=== PATIENT | female | born 1960 | race Caucasian/White ===

== ENCOUNTER 2018-09-10 12:40 | Emergency (ER) | payer OTHER ==
[2018-09-10 13:18] VITALS: BP 160/72
--- NOTE | 2018-09-10 13:36 | UC ---
Knee Pain HPI - HPI Summary HPI Summary: right knee pain x 1 day injury to her right knee at work resident threw a chair at her , chair hit her right knee + swelling, bruising , pain has been favoring her right leg , pain and discomfort of left foot - History of Current Complaint Chief Complaint: UCLowerExtremity Stated Complaint: WC-RT KNEE INJURY Time Seen by Provider: 09/10/18 13:21 Hx Obtained From: Patient Onset/Duration: Sudden Onset, Lasting Days - 1, Still Present Severity Initially: Moderate Severity Currently: Moderate Pain Intensity: 5 Character: Dull, Aching Aggravating Factor(s): Movement, Weight Bearing, Prolonged Standing, Stairs Alleviating Factor(s): Rest, Cold Associated Signs And Symptoms: Positive: Swelling, Bruising. Negative: Redness , Fever, Weakness, Numbness, Tingling - Allergies/Home Medications Allergies/Adverse Reactions: Allergies Allergy/AdvReac Type Severity Reaction Status Date / Time No Known Allergies Allergy Verified 09/10/18 13:18 Home Medications: Home Medications Acetaminophen [Eq 8Hr Arthritis Pain Rel] 1,200 mg PO TID PRN 09/10/18 [History Confirmed 09/10/18] Levothyroxine Sodium [Synthroid] 50 mcg PO DAILY 09/10/18 [History Confirmed 07/30] Meloxicam [Mobic] 15 mg PO DAILY 09/10/18 [History Confirmed 09/10/18] PMH/Surg Hx/FS Hx/Imm Hx Endocrine History: Diabetes, Hypothyroidism Cardiovascular History: Hypertension - Surgical History Surgical History: Yes Surgery Procedure, Year, and Place: hernia with mesh. - Family History Known Family History: Positive: Hypertension - Social History Alcohol Use: None Substance Use Type: None Smoking Status (MU): Never Smoked Tobacco Review of Systems All Other Systems Reviewed And Are Negative: Yes Constitutional: Positive: Negative Skin: Positive: Negative Eyes: Positive: Negative Is Patient Immunocompromised?: No Physical Exam Triage Information Reviewed: Yes Appearance: Well-Appearing, No Pain Distress, Well-Nourished Vital Signs: Initial Vital Signs Temp 97.5 F 09/10/18 13:13 Pulse 77 09/10/18 13:13 Resp 18 09/10/18 13:13 BP 160/72 09/10/18 13:13 Pulse Ox 97 09/10/18 13:13 Vital Signs Reviewed: Yes Eye Exam: Normal Eyes: Positive: Conjunctiva Clear ENT: Positive: Normal ENT inspection, Hearing grossly normal Neck: Positive: Supple, Nontender, No Lymphadenopathy Respiratory: Positive: Chest non-tender, Lungs clear, Normal breath sounds Cardiovascular: Positive: RRR, No Murmur, Pulses Normal Musculoskeletal: Positive: Other: - right knee: mild bruising, mild tenderness, on swelling, no effusion, good ROM , normal strength left foot: no swelling, no bruising, + plantar tenderness Knee Pain Course/Dx - Differential Dx/Diagnosis Provider Diagnosis: Contusion of right knee, Plantar fasciitis of left foot Discharge - Sign-Out/Discharge Documenting (check all that apply): Patient Departure All imaging exams completed and their final reports reviewed: No Studies - Discharge Plan Condition: Stable Disposition: HOME Patient Education Materials: Plantar Fasciitis (ED), Contusion in Adults (ED) Forms: *Work Release Referrals: No Primary Care Phys,NOPCP [Primary Care Provider] - If Needed - Billing Disposition and Condition Condition: STABLE Disposition: Home
== END 2018-09-10 13:39 | disposition home or self-care (01) ==
LOC: UCCORT 12:40
DX: S80.01XA Contusion of right knee, initial encounter (principal); Y00.XXXA Assault by blunt object, initial encounter; Y92.9 Unspecified place or not applicable; M72.2 Plantar fascial fibromatosis; I10 Essential (primary) hypertension; E11.9 Type 2 diabetes mellitus without complications
CPT/HCPCS: 99201; G0463